=== PATIENT | female | born 1985 | race Caucasian/White ===

== ENCOUNTER → 2017-04-29 | Day surgery (SDC) | payer OTHER ==
[~2017-04-29] VITALS: Ht 167.6 cm; Wt 85.0 kg
[~2017-04-29] MED LIST: BUPR75TA5 PO; CARB200T4 PO; HYDR-3605 PO; IBUP200T48 PO; KLO1T PO; LACT10SO60 PO; LORA0.5T PO; Lactated Ringer's 1,000 ML IV ONE; PANT40TA3 PO; POLY17PO6 PO; PRAZ5CAP3 PO; PROP10TA8 PO; Propofol 10 mg/mL 20 mL Inj ONE; TRAZ-115 PO; VENL25TA4 PO
--- NOTE | 2017-04-29 07:42 | PCM.HPANE ---
Patient Data Surgeon Admitting Provider: Attending Provider:Anastasiya Shrestha MD Primary Care Physician:Negrito Other Provider:Darrion Saab Anesthesia Reason for Visit Weight Loss Ht/WT & BMI Body Mass Index Allergies Coded Allergies: buspirone (Verified Allergy, Severe, 10/11/14) codeine (Verified Allergy, Severe, 10/11/14) nicotine (Verified Allergy, Severe, 10/11/14) latex (Verified Allergy, Unknown, 04/27/17) Past Anesthesia History Anesthesia History: Denies:: Abnormal Airway, Anesthesia Reactions, Difficult Intubation, Fam Anesthesia Reaction, Fam Malignant Hypertherm, Malignant Hyperthermia Diabetes History Hx Diabetes?: No MRSA MRSA: No Medications Reported Medications Clonazepam 1 Mg Tablet1 Mg PO TID PRN For Anxiety Ref 0 04/29/17 Polyethylene Glycol 3350 (Miralax)17 Gm Powd.pack17 Gm PO BID 04/27/[address] 40 Mg Tablet.dr40 Mg PO DAILY Ref 0 04/27/17 Lactulose 20 Gm/30 Ml Lcgepnfw26 Gm PO BID 04/27/17 Carbamazepine (Epitol)200 Mg Ehlioi973 Mg PO BID 04/27/17 Propranolol HCl 10 Mg Tablet5 Mg PO DAILY 90 Days Ref 0 10/12/14 HydrOXYzine HCl 10 Mg Cnugfn65 Mg PO BID PRN For Itching Ref 0 10/12/14 Bupropion (Wellbutrin)75 Mg TabletUnknown Dose PO DAILY 30 Days Ref 0 10/12/14 Venlafaxine 25 Mg TabletUnknown Dose PO DAILY 30 Days Ref 0 10/12/14 Prazosin 5 Mg CapsuleUnknown Dose PO TID 30 Days 10/12/14 Trazodone 50 Mg Cldbae711 Mg PO HS 30 Days Ref 0 10/11/14 Ibuprofen 200 Mg Gxwizm558 Mg PO QID PRN For Pain Ref 0 10/11/14 Discontinued Reported Medications Lorazepam 0.5 Mg Tablet1 Mg PO BID PRN For Anxiety Ref 0 10/12/14 Sodium Chloride/Nahco3/KCl/Peg (Nulytely with Flavor Packs Lottie)4,000 Ml Soln.recon4,000 Ml PO 10/11/14 History History of ENT Problems?: No HEENT History: Positive for:: Dysphagia Denies:: Abnormal Airway Difficult Intubation Hearing Problem Denture Type: Full- Upper Full- Lower Teeth Condition: No Teeth Hx of Heart Problems?: No Cardiovascular History: Denies:: AICD Atrial Fibrillation Chest Pain Hypertension Pacemaker Valvular Heart Disease Hx of Respiratory Problem?: No Respiratory History: Positive for:: Dyspnea Denies:: Asthma COPD Cough Hemoptysis Pneumonia Tuberculosis Hx Neurologic Problems?: Yes Neurological History: Positive for:: Seizures (1 grand mal.pt states happens with anxiety?) Denies:: CVA Hx of GI Problems?: Yes Hx of Problems?: No Female Hx: Denies:: Currently Hx Musculoskeletal Problems?: No Musculoskeletal History: Denies:: Joint Replacement Hx of Psycho/Social Problems?: Yes Psycho Social History: Positive for:: Anxiety Hx Depression Hx Surgeries?: Yes (FECAL IMPACTION SURGERY ) Hx Any Other Health Problems?: Yes Other History: Positive for:: Hospitalization History Blood Transfusions: Denies:: Blood Transfuse Reaction Blood Transfusions Hx Diabetes: No Hx Alcohol Use: NoHx Substance Use: No Smoking Status: Current Every Day Smoker Heavy Tobacco Smoker Stop/Bang Risk Assessment Category Category 1A: Patient has history of documented sleep apnea, and HAS NOT received any narcotic, sedative or anesthesia administration during this stay. Category 1B: Patient has history of documented sleep apnea, and HAS received any narcotic , sedative or anesthesia administration during this stay Category 2: Patient has SUSPECTED Obstructive Sleep Apnea, and HAS received any narcotic , sedative or anesthesia administration during this stay. Category 3: Patient has SUSPECTED Obstructive Sleep Apnea and HAS NOT received narcotic, sedative or anesthesia administration during this stay. Category 4: Outpatient in Procedural Areas with known sleep apnea or who screen positive for High Risk via the STOP/BANG questionnaire. Exam Exam General Appearance: Alert, Oriented X3, Cooperative, No Acute Distress HEENT/AIRWAY: MP 1 Lungs: Normal Air Movement Heart: Regular Rate/Rhythm Plan Impression Patient chart reviewed, patient interviewed and anesthestic plan with risks, benefits, and alternatives discussed, and informed consent obtained. NPO per Anesth. Guidelines: Yes ASA Physical Status: ASA2 Mod Systemic Disease Anesthetic Plan: MAC Bene/Risks/Altern/Consents: Yes HP Complete Prior to Induction: Yes Pablo Parkinson MD Apr 29, 2017 07:42
[2017-04-29 14:57] VITALS: BP 127/70; PULSE 89; RESP 14; O2SAT 96
[2017-04-29 16:10] VITALS: BP 86/46; PULSE 93; RESP 10; O2SAT 98
[2017-04-29 16:22] VITALS: BP 117/69; PULSE 90; RESP 16; O2SAT 100
--- NOTE | 2017-04-29 16:39 | ENDO ---
[address] [address] ENDOSCOPY PROCEDURE PATIENT: ROSETTE SAMUELS : 1985 MR#: [id number] ADMIT: 04/29/2017 JOB ID: [id number] DATE: 04/29/2017 PROCEDURE: Esophagogastroduodenoscopy (EGD) INDICATION: Nausea, vomiting, and weight loss. ANESTHESIA: Patient's ASA classification, Mallampati score, and medications as per anesthesia note. INSTRUMENT USED: GIF H 180 J. PROCEDURE DETAILS: After informed consent was obtained, the patient was brought into the GI suite where she was placed on oxygen via nasal cannula and monitored with continuous pulse oximeter, telemetry, and blood pressure monitoring. A time-out was performed, then she was placed in the left lateral decubitus position and medications were administered for sedation. A bite block was placed. The standard esophagogastroduodenoscopy scope was inserted through the bite block and advanced under direct visualization to the second portion of the duodenum without difficulty. FINDINGS: 1. Normal appearing duodenal bulb, first and second portion. Multiple random biopsies were obtained. 2. Normal-appearing pylorus, antrum, and gastric body. 3. Retroflexed views in the gastric body revealed a normal-appearing cardia and fundus. 4. Multiple random biopsies were obtained throughout the antrum and body of the stomach. 5. Normal-appearing GE junction with a regular Z-line at 36 cm. 6. Normal-appearing esophagus. IMPRESSION: Normal esophagogastroduodenoscopy exam to second portion of duodenum. No findings to explain patient's complaints of nausea, vomiting, and weight loss. RECOMMENDATIONS: Await biopsy results and follow up in GI Clinic. COMPLICATIONS: None. ESTIMATED BLOOD LOSS: Less than 5 mL. PROCEDURE PERFORMED: Colonoscopy. INDICATION: Nausea, vomiting, and weight loss. ANESTHESIA: Please see above for ASA classification, Mallampati score, and medications. INSTRUMENT USED: PCF H 180 AL PREPARATION QUALITY: Fair. PROCEDURE DETAILS: After completion of the EGD exam, the patient was turned and then a digital rectal exam was performed which was unremarkable. The colonoscope was then inserted into the rectum and advanced under direct visualization to the terminal ileum which was identified by the presence of the ileocecal valve and villous appearing mucosa of the terminal ileum. Once the terminal ileum was reached, the colonoscope was withdrawn back into the rectum as the mucosa and lumen were examined. In the rectum, retroflexion was performed. Following retroflexion, the remaining air in the rectum was suctioned and the procedure was completed. FINDINGS: 1. Normal appearing terminal ileum. Multiple random biopsies were obtained. 2. In the distal rectum there was an approximately 4-5 mm sessile polyp that was removed with a cold snare. 3. The remainder of the exam otherwise from rectum to cecum was unremarkable. Multiple random biopsies were obtained throughout. IMPRESSION: Rectal polyp. Otherwise normal exam to terminal ileum. RECOMMENDATIONS: 1. Await pathology results. 2. Follow up in GI Clinic. COMPLICATIONS: None. ESTIMATED BLOOD LOSS: Less than 5 mL. CC: Dr. Jevon URBINA
--- NOTE | 2017-04-29 18:23 | PCM.ANEP1 ---
Post Anesthesia PACU Phase 1 Assessment Vital Signs Vital Signs Date Time Temp Pulse Resp B/P Pulse Ox O2 Delivery O2 Flow Rate FiO2 04/29/17 16:22 90 16 117/69 100 Room Air 04/29/17 16:10 36.6 93 10 86/46 98 Nasal Cannula 4 04/29/17 14:57 37 89 14 127/70 96 Room Air Anesthetic Administered: MAC Level of Alertness: Awake, talking Pain: No Nausea or Vomiting: No CV Function & Hydration Stable: Yes Airway Device: None Lungs: Normal Air Movement PACU Phase 2 Assessment Complications: No Follow up Care: N/A Patient Instructions Provided: N/A Pablo Parkinson MD Apr 29, 2017 18:23
--- NOTE | 2017-05-06 08:08 | PATH ---
SURGICAL PATHOLOGY Attending Physician:Miguel Yu CASE STATUS: Signed Out PATIENT NAME: ROSETTE SAMUELS PID: [id number] : 1985 DATE COLLECTED:04/29/2017 00:00 SPECIMEN: 1: Duodenum, Biopsy 2: Gastric, Biopsy 3: Ileum, Biopsy 4: Colon, Biopsy 5: Rectum, Biopsy CLINICAL HISTORY: 1). DUODENUM BIOPSY 2). GASTRIC BIOPSY RULE OUT H PYLORI 3). TERMINAL ILEUM BIOPSY 4). RANDOM COLON BIOPSY 5). RECTAL POLYP FINAL DIAGNOSIS: 1. Duodenum, Biopsy: Duodenal mucosa with no diagnostic abnormality. Negative for active inflammation, features of sprue, dysplasia and malignancy. 2. Stomach, Biopsy: Antral and body-type mucosa with no diagnostic abnormality. Negative for Helicobacter organisms. Negative for intestinal metaplasia. Negative for dysplasia and malignancy. 3. Terminal Ileum, Biopsy: Small bowel mucosa with no diagnostic abnormality. Negative for active inflammation, dysplasia and malignancy. 4. Random Colon, Biopsy: Colonic mucosa with no diagnostic abnormality. Negative for active, chronic and microscopic colitis. Negative for dysplasia and malignancy. 5. Rectum, Polyp, Biopsy: Hyperplastic polyp. ICD10: R10.9 GROSS DESCRIPTION: The specimen is received in five formalin filled containers labeled with the patient's name. 1). The specimen is labeled "duodenum" and consists of 3 portions of tissue which aggregate to 0.2 x 0.2 x 0.2 CM. The specimen is entirely cemented in cassette 1A. 2). The specimen is labeled "gastric" and consists of 3 portions of tissue which aggregate to 0.3 x 0.3 x 0.2 CM. The specimen is entirely submitted in cassette 2A. 3). The specimen is labeled "terminal ileum" and consists of 2 portions of tissue which aggregate to 0.3 x 0.3 x 0.2 CM. The specimen is entirely submitted in cassette 3A. 4). The specimen is labeled "random colon" and consists of multiple portions of tissue which aggregate to 0.4 x 0.3 x 0.3 CM. The specimen is entirely submitted in cassette 4A. The specimen is labeled "rectal polyp" and consists of a 0.3 x 0.3 x 0.3 CM portion of tissue which is entirely submitted in cassette 5A. 04/30/2017DC MICRO DESCRIPTION: 2: An immunohistochemical stain was performed to evaluate for Helicobacter organisms and is negative. A control stain showed appropriate reactivity . * This test was developed and its performance characteristics determined by [facility]. It has not been cleared or approved by the U.S. Food and Drug Administration. The FDA has determined that such clearance or approval is not necessary. This test is used for clinical purposes. It should not be regarded as investigational or for research. ICD-9 CODES: CPT CODES: 1: 98698 2: 95786, 79880 3: 07272 4: 34490 5: 23787 Electronically Signed Out Harriet Mathew MD [facility] [address], [place] [address] Technical component performed at [facility], [address], [place], [address]
== END | disposition home or self-care (01) ==
LOC: END 08:22
PROVIDERS: ATTEND Internal Medicine Gastroenterology
DX: R11.2 Nausea with vomiting, unspecified (principal); R63.4 Abnormal weight loss; K62.1 Rectal polyp; K21.9 Gastro-esophageal reflux disease without esophagitis; G47.33 Obstructive sleep apnea (adult) (pediatric); G40.909 Epilepsy, unspecified, not intractable, without status epilepticus; F32.9 Major depressive disorder, single episode, unspecified; F41.9 Anxiety disorder, unspecified
CPT/HCPCS: 43239; 45380; 45385; J2704; J7120